=== PATIENT | female | born 1990 | race Caucasian/White ===

== ENCOUNTER 2023-04-18 16:55 | Emergency (ER) | payer OTHER ==
[~2023-04-18] VITALS: Ht 160 cm; Wt 52.2 kg
[2023-04-18] MEDS ORDERED: CYCLOBENZAPRINE 10 MG TABLET ONE (18:26)
[2023-04-18] MEDS ORDERED: CYCLOBENZAPRINE 10 MG TABLET PO ONE (18:30)
[2023-04-18 18:49] LABS: PREGNANCY TEST URINE QUAL POSITIVE (NEGATIVE)
[2023-04-18] MEDS ORDERED: LIDOCAINE 5% (PATCH) 1 EA PATCH TP SCH (20:00)
[2023-04-18] MEDS ORDERED: LIDO30AD10 TP (22:49)
[2023-04-18] MEDS ORDERED: ACET-2605 PO (22:49)
[2023-04-18 23:11] VITALS: BP 102/67; TEMP 98.7; O2SAT 100
== END 2023-04-18 23:10 | disposition home or self-care (01) ==
LOC: ER 17:02
DX: O26.891 Other specified pregnancy related conditions, first trimester (principal); M54.2 Cervicalgia; M25.512 Pain in left shoulder; R10.2 Pelvic and perineal pain; Z79.899 Other long term (current) drug therapy; Z3A.01 Less than 8 weeks gestation of pregnancy
CPT/HCPCS: 36415; 72050-TC; 73030-TC; 76805-TC; 84702-TC; 84703-TC